=== PATIENT | male | born 1945 | race Caucasian/White ===

== ENCOUNTER 2017-11-19 11:17 | Inpatient (IN) | payer OTHER ==
[2017-11-19] MEDS: ONDANSETRON 4 MG INJ IV ×2 (12:16→17:25)
[2017-11-19] MEDS: SOD CHLORIDE 0.9% 1,000 ML IV ×2 (12:17→15:30)
[2017-11-19] MEDS: INSULIN LISPRO 100 UNIT/ML VIAL SC ×2 (12:30→15:30)
[2017-11-19 12:36] LABS: ADD MAN DIFF? NO
[2017-11-19 12:40] LABS: BASOPHIL # 0.1 10^3/ul (0.0-0.1); BASOPHILS % 0.7 % (0.0-2.0); HEMATOCRIT 36.8 % (42.0-52.0); HEMOGLOBIN 12.1 g/dl (14.0-18.0); LYMPHOCYTES # 0.8 10^3/ul (0.8-2.9); LYMPHOCYTES % 10.3 % (15.0-51.0); MEAN CORPUSCULAR HEMOGLOBIN 32.6 pg (29.0-33.0); MEAN CORPUSCULAR HGB CONC 32.9 g/dl (32.0-37.0); MEAN CORPUSCULAR VOLUME 99.2 fl (82.0-101.0); MEAN PLATELET VOLUME 10.8 fl (7.4-10.4); MONOCYTE # 0.6 10^3/ul (0.3-0.9); MONOCYTES % 6.7 % (0.0-11.0); NEUTROPHIL # 6.7 10^3/ul (1.6-7.5); NEUTROPHILS % 81.8 % (39.0-77.0); PLATELET COUNT 283 10^3/UL (140-415); RED BLOOD COUNT 3.71 10^6/ul (4.70-6.10)
[2017-11-19 12:40] LABS: WHITE BLOOD COUNT 8.2 10^3/ul (4.8-10.8)
[2017-11-19 12:42] LABS: ADD UMIC NO; UR ASCORBIC ACID NEGATIVE (NEGATIVE); UR BILIRUBIN (Dip) NEGATIVE (NEGATIVE); UR BLOOD (Dip) NEGATIVE (NEGATIVE); UR CLARITY CLEAR (CLEAR); UR COLOR STRAW (YELLOW); UR GLUCOSE (Dip) 3+ mg/dL (NEGATIVE); UR KETONES (Dip) NEGATIVE (NEGATIVE); UR LEUKOCYTE ESTERASE (Dip) NEGATIVE Leu/ul (NEGATIVE); UR NITRITE (Dip) NEGATIVE (NEGATIVE); UR SPECIFIC GRAVITY (Dip) 1.025 (1.003-1.030); UR TOTAL PROTEIN (Dip) NEGATIVE (NEGATIVE); UR UROBILINOGEN (Dip) NEGATIVE (NEGATIVE)
[2017-11-19 13:05] LABS: ALANINE AMINOTRANSFERASE 68 IU/L (13-69); ALBUMIN 4.3 g/dl (3.3-4.9); ALBUMIN/GLOBULIN RATIO 0.97; ALKALINE PHOSPHATASE 163 IU/L (42-121); ANION GAP 25 (8-16); ASPARTATE AMINO TRANSFERASE 60 IU/L (15-46); BILIRUBIN,INDIRECT 0.6 mg/dl (0-1.1); BILIRUBIN,TOTAL 0.6 mg/dl (0.2-1.3); BLOOD UREA NITROGEN 19 mg/dl (7-20); CARBON DIOXIDE 25 mmol/L (21-31); CHLORIDE 85 mmol/L (97-110); CREATININE 1.21 mg/dl (0.61-1.24); POTASSIUM 4.4 mmol/L (3.5-5.1); SODIUM 131 mmol/L (135-144); TOTAL PROTEIN 8.7 g/dl (6.1-8.1)
[2017-11-19 14:01] LABS: GLUCOSE 1208 mg/dl (70-220)
[2017-11-19] MEDS ORDERED: ONDANSETRON 4 MG INJ IV (14:30)
[2017-11-19] MEDS ORDERED: ACETAMINOPHEN 325 MG TAB PO ×2 (14:30→16:00)
[2017-11-19] MEDS: SOD CHLORIDE 0.45% 1,000 ML IV (15:55)
[2017-11-19] MEDS: SODIUM CHLORIDE 0.45% 500 ML BAG IV* (15:55)
[2017-11-19] MEDS ORDERED: LABETALOL HCL 20MG INJ IV (16:00)
[2017-11-19] MEDS ORDERED: DEXTROSE 50% 50 ML SYRINGE IV ×2 (16:00)
[2017-11-19] MEDS ORDERED: NACL 0.9% 3 ML SYG IV (16:00)
[2017-11-19] MEDS ORDERED: INSULIN HUMAN REGULAR 100 UNIT in SOD CHLORIDE 0.9% 99 ML IV (16:00)
[2017-11-19] MEDS ORDERED: DOCUSATE SODIUM 100 MG CAP PO (16:00)
[2017-11-19] MEDS: INSULIN HUMAN REGULAR 100 UNIT in SOD CHLORIDE 0.9% 99 ML IV (17:17)
[2017-11-19] MEDS: LISINOPRIL 10 MG TAB PO (17:26)
[2017-11-19] MEDS: ENOXAPARIN 40 MG/0.4 ML SYG SC (17:26)
[2017-11-19] MEDS: traMADol 50 MG TAB PO (17:33)
[2017-11-19 17:40] LABS: HEMOGLOBIN A1C 10.4 % (0-5.9)
[2017-11-19 18:49] LABS: ANION GAP 17 (8-16); BLOOD UREA NITROGEN 17 mg/dl (7-20); CALCIUM 8.2 mg/dl (8.4-10.2); CARBON DIOXIDE 25 mmol/L (21-31); CHLORIDE 98 mmol/L (97-110); CREATININE 0.95 mg/dl (0.61-1.24); GLUCOSE 386 mg/dl (70-220); POTASSIUM 3.6 mmol/L (3.5-5.1); SODIUM 136 mmol/L (135-144)
[2017-11-19] MEDS: DEXTROSE 5%-0.45% NACL 1,000 ML IV (20:06)
[2017-11-19] MEDS: ACCU-CHEK XX (22:00)
[2017-11-19] MEDS: ATORVASTATIN 10 MG TAB PO (23:21)
[2017-11-20] MEDS: ACCU-CHEK XX
[2017-11-20] MEDS: DEXTROSE 5%-0.45% NACL 1,000 ML IV (02:17)
[2017-11-20] MEDS ORDERED: GLUCOSE GEL 15 GRAM TUBE PO ×2 (04:00)
[2017-11-20] MEDS ORDERED: GLUCAGON 1 MG INJ IM (04:00)
[2017-11-20] MEDS ORDERED: GLUCOSE GEL 15 GRAM TUBE BUCCAL (04:00)
[2017-11-20] MEDS ORDERED: DEXTROSE 50% 50 ML SYRINGE IV ×2 (04:00)
[2017-11-20] MEDS: NS + KCL 20 MEQ 1,000 ML IV ×2 (04:26→14:48)
[2017-11-20] MEDS: INSULIN GLARGINE [LANtus] 3 ML PEN SC (04:33)
[2017-11-20 06:17] LABS: ADD MAN DIFF? NO
[2017-11-20 06:22] LABS: WHITE BLOOD COUNT 12.3 10^3/ul (4.8-10.8)
[2017-11-20 06:22] LABS: BASOPHIL # 0.1 10^3/ul (0.0-0.1); BASOPHILS % 0.8 % (0.0-2.0); EOSINOPHILS # 0.1 10^3/ul (0.0-0.5); EOSINOPHILS % 0.6 % (0.0-7.0); HEMATOCRIT 31.7 % (42.0-52.0); HEMOGLOBIN 10.9 g/dl (14.0-18.0); LYMPHOCYTES # 2.3 10^3/ul (0.8-2.9); LYMPHOCYTES % 18.9 % (15.0-51.0); MEAN CORPUSCULAR HGB CONC 34.4 g/dl (32.0-37.0); MONOCYTE # 0.8 10^3/ul (0.3-0.9); MONOCYTES % 6.3 % (0.0-11.0); NEUTROPHILS % 73.2 % (39.0-77.0); PLATELET COUNT 229 10^3/UL (140-415); RED BLOOD COUNT 3.41 10^6/ul (4.70-6.10); RED CELL DISTRIBUTION WIDTH 14.3 % (11.5-14.5)
[2017-11-20 07:00] LABS: ANION GAP 14 (8-16); BLOOD UREA NITROGEN 14 mg/dl (7-20); CALCIUM 8.5 mg/dl (8.4-10.2); CARBON DIOXIDE 26 mmol/L (21-31); CHLORIDE 99 mmol/L (97-110); CREATININE 0.92 mg/dl (0.61-1.24); GLUCOSE 201 mg/dl (70-220); POTASSIUM 4.1 mmol/L (3.5-5.1); SODIUM 135 mmol/L (135-144)
[2017-11-20] MEDS: ONDANSETRON 4 MG INJ IV (07:23)
[2017-11-20] MEDS: INSULIN ASPART [NOVOLOG] 3 ML PEN SC ×6 (07:56→17:33)
[2017-11-20] MEDS: ENOXAPARIN 40 MG/0.4 ML SYG SC (07:58)
[2017-11-20] MEDS: LISINOPRIL 10 MG TAB PO (07:59)
[2017-11-20] MEDS: SERTRALINE 50 MG TAB PO (08:02)
[2017-11-20] MEDS: ASPIRIN (EC) 81 MG TAB PO (08:03)
[2017-11-20] MEDS: GABAPENTIN 100 MG CAP PO (14:48)
[2017-11-20] MEDS ORDERED: INSULIN GLARGINE [LANtus] 3 ML PEN SC (20:00)
== END 2017-11-20 18:45 | DRG 638 ==
LOC: E/R 11:17 → MS2 11-20 13:18 → ICU 14:13
PROVIDERS: Hospitalist
DX: E11.00 Type 2 diabetes mellitus with hyperosmolarity without nonketotic hyperglycemic-hyperosmolar coma (NKHHC) (principal); E87.1 Hypo-osmolality and hyponatremia; E11.65 Type 2 diabetes mellitus with hyperglycemia; I10 Essential (primary) hypertension; F32.9 Major depressive disorder, single episode, unspecified; F41.9 Anxiety disorder, unspecified; Z79.4 Long term (current) use of insulin; Z87.891 Personal history of nicotine dependence; Z98.49 Cataract extraction status, unspecified eye
CPT/HCPCS: 36415; 80048; 80053; 81003; 82962; 83036; 85025; 87081; 96365; 96366; 96372; 96375; 96376; 99291-25